=== PATIENT | female | born 1985 ===

== ENCOUNTER 2018-08-29 09:54 | Outpatient (CLI) | payer OTHER | END 2018-08-29 10:15 | disposition home or self-care (01) | LOC: OFIC 805 09:54 | DX: H66.92 Otitis media, unspecified, left ear (principal); M54.2 Cervicalgia; R09.81 Nasal congestion ==

== ENCOUNTER 2018-09-04 08:26 | Outpatient (CLI) | payer OTHER ==
[~2018-09-04] VITALS: Ht 152.4 cm; Wt 45.4 kg
== END 2018-09-04 08:40 | disposition home or self-care (01) ==
LOC: OFIC 805 08:26
DX: H66.92 Otitis media, unspecified, left ear (principal); R09.81 Nasal congestion; H61.23 Impacted cerumen, bilateral

== ENCOUNTER 2018-09-12 07:17 | Outpatient (CLI) | payer OTHER ==
[~2018-09-12] VITALS: Ht 152.4 cm; Wt 45.4 kg
== END 2018-09-12 07:35 | disposition home or self-care (01) ==
LOC: OFIC 805 07:17
DX: H66.3X2 Other chronic suppurative otitis media, left ear (principal); R09.81 Nasal congestion; L30.8 Other specified dermatitis

== ENCOUNTER 2018-09-30 09:14 | Outpatient (CLI) | payer OTHER ==
[~2018-09-30] VITALS: Ht 152.4 cm; Wt 45.4 kg
== END 2018-09-30 09:30 | disposition home or self-care (01) ==
LOC: OFIC 805 09:14
DX: H60.8X2 Other otitis externa, left ear (principal)

== ENCOUNTER 2018-09-30 10:36 | Outpatient (CLI) | payer OTHER | END 2018-09-30 11:00 | disposition home or self-care (01) | LOC: LAB 10:36 | DX: H61.892 Other specified disorders of left external ear (principal) ==

== ENCOUNTER 2019-02-20 09:07 | Outpatient (CLI) | payer OTHER ==
[~2019-02-20] VITALS: Ht 152.4 cm; Wt 45.4 kg
== END 2019-02-20 09:20 | disposition home or self-care (01) ==
LOC: OFIC 805 09:07
DX: H66.92 Otitis media, unspecified, left ear (principal); R09.81 Nasal congestion; M54.2 Cervicalgia; M79.2 Neuralgia and neuritis, unspecified

== ENCOUNTER 2019-03-20 07:22 | Outpatient (CLI) | payer OTHER ==
[~2019-03-20] VITALS: Ht 152.4 cm; Wt 45.4 kg
== END 2019-03-20 07:40 | disposition home or self-care (01) ==
LOC: OFIC 805 07:22
DX: M79.2 Neuralgia and neuritis, unspecified (principal); M54.2 Cervicalgia; H61.899 Other specified disorders of external ear, unspecified ear; H60.549 Acute eczematoid otitis externa, unspecified ear